=== PATIENT | female | born 1975 | race Caucasian/White ===

== ENCOUNTER 2017-02-05 13:49 | Emergency (ER) | payer OTHER ==
[~2017-02-05] VITALS: Ht 154.9 cm; Wt 84.7 kg
[~2017-02-05 13:49] MED LIST: CYCL-36 PO; IBUP800 PO; LORA-475 PO; ZOLP10TA3 PO
[2017-02-05 13:52] VITALS: BP 156/98; PULSE 117; RESP 16; TEMP 99.4; O2SAT 96
[2017-02-05] MEDS ORDERED: AZIT250T3 PO (15:51)
--- NOTE | 2017-02-05 15:51 | PD ---
HPI Chief Complaint: ENT Complaint Time Seen by Provider: 14:58 Travel History International Travel<30 days: No Contact w/Intl Traveler<30days: No Traveled to known affect area: No History of Present Illness HPI 41 -year-old female here sore throat and fever times one day. She reports her spouse tested positive for strep throat. Symptom severity is moderate. She denies difficulty swallowing. She is able to eat and drink without difficulty. No change in voice. No alleviating factors. PFSH Past Medical History Hx Anticoagulant Therapy: No Arthritis: No Asthma: No Blood Disorders: No Anxiety: Yes Depression: No Heart Rhythm Problems: No Cancer: No Cardiovascular Problems: No High Cholesterol: No Chest Pain: No Congestive Heart Failure: No COPD: No Cerebrovascular Accident: No Diabetes: No Diminished Hearing: No Endocrine: No Gastrointestinal Disorders: Yes (GALLSTONES) GERD: Yes Glaucoma: No Genitourinary: No Headaches: Yes Hepatitis: No Hiatal Hernia: No Hypertension: Yes Immune Disorder: No Kidney Stones: No Musculoskeletal: No Neurologic: Yes (headaches) Psychiatric: No Reproductive: No Respiratory: No Immunizations Current: Yes Migraines: Yes Myocardial Infarction: No Pancreatitis: Yes Renal Failure: No Seizures: No Sleep Apnea: No Thyroid Disease: No Ulcer: No Tetanus Vaccination: Unknown ?: Not : 2 Para: 1 Miscarriage: 1 Tubal Ligation: Yes Past Surgical History Abdominal Surgery: Yes (ABDOMINOPLASTY; ERCP) AICD: No Appendectomy: Yes Arteriovenous Shunt: No Cardiac Surgery: No Section: Yes Cholecystectomy: Yes Ear Surgery: No Endocrine Surgery: No Eye Surgery: No Genitourinary Surgery: Yes Gynecologic Surgery: Yes Neurologic Surgery: No Oral Surgery: No Pacemaker: No Thoracic Surgery: No Other Surgery: Yes ( breast reduction) Social History Alcohol Use: No Tobacco Use: No Substance Use: No Allergies-Medications (Allergen,Severity, Reaction): Coded Allergies: penicillin G (Unverified Allergy, Intermediate, Hives, 02/05/17) Uncoded Allergies: SHELLFISH (Allergy, Intermediate, Hives, 03/10/04) Reported Meds & Prescriptions Reported Meds & Active Scripts Active No Active Prescriptions or Reported Medications Review of Systems Except as stated in HPI: all other systems reviewed are Neg General / Constitutional: Positive: Fever Eyes: No: Visual changes HENT: Positive: Sore Throat Cardiovascular: No: Chest Pain or Discomfort Respiratory: No: Shortness of Breath Gastrointestinal: No: Abdominal Pain Genitourinary: No: Dysuria Musculoskeletal: Positive: Myalgias Skin: No Rash Neurologic: No: Weakness Physical Exam Narrative GENERAL: Alert female. Nontoxic appearing SKIN: Warm and dry. No rash HEAD: Normocephalic. EYES: No scleral icterus. No injection or drainage. THROAT: Pharyngeal erythema, mild tonsillar hypertrophy without exudate NECK: Supple, trachea midline. Anterior cervical lymphadenopathy CARDIOVASCULAR: Regular rate and rhythm without murmurs, gallops, or rubs. RESPIRATORY: Breath sounds equal bilaterally. No accessory muscle use. GASTROINTESTINAL: Abdomen soft, non-tender, nondistended. MUSCULOSKELETAL: No cyanosis, or edema. BACK: Nontender without obvious deformity. No CVA tenderness. Data Data Last Documented VS Vital Signs Date Time Temp Pulse Resp B/P (MAP) Pulse Ox O2 Delivery O2 Flow Rate FiO2 02/05/17 13:52 99.4 117 16 156/98 (117) 96 Orders Orders Group A Rapid Strep Screen (02/05/17 15:03) Influenzae A/B Antigen (02/05/17 15:03) Strep Culture (Group A) (02/05/17 15:10) MDM Medical Decision Making Medical Screen Exam Complete: Yes Emergency Medical Condition: Yes Differential Diagnosis Strep pharyngitis, viral pharyngitis, influenza Narrative Course 41-year-old female here with sore throat and fever times one day. Patient exposed to stay to have strep pharyngitis. She is nontoxic appearing. Her heart rate is elevated in the low 100-110. She has moist mucous membranes. The dehydration. She was instructed to take OTC Tylenol and ibuprofen and stay well-hydrated. Influenza is negative. Patient will be treated for strep given her exposure and symptoms Diagnosis Primary Impression: Pharyngitis Qualified Codes: J02.9 - Acute pharyngitis, unspecified Referrals: Primary Care Physician Additional Instructions: Take [id number] Tylenol or ibuprofen Stay well hydrated by drinking clear fluids Scripts Azithromycin (Azithromycin) 250 Mg Tab 250 MG PO DIRECTED for Infection, #6 TAB 0 Refills Take 2 tabs (500 mg) on day 1 then 1 tab daily x 4 days. Prov: Sparkle Lovell 02/05/17 Disposition: 01 DISCHARGE HOME Condition: Stable Sparkle Lovell Feb 05, 2017 15:51
[2017-02-05] MEDS ORDERED: IBUPROFEN 800 MG TAB PO ONE (16:00)
== END 2017-02-05 16:15 | disposition home or self-care (01) ==
LOC: PHEFT 13:49
DX: J02.9 Acute pharyngitis, unspecified (principal); R50.9 Fever, unspecified; I10 Essential (primary) hypertension; Z87.19 Personal history of other diseases of the digestive system; Z86.69 Personal history of other diseases of the nervous system and sense organs; Z86.59 Personal history of other mental and behavioral disorders
CPT/HCPCS: 87081; 87804; 87880; 99283